=== PATIENT | female | born 1940 | race Caucasian/White ===

== ENCOUNTER → 2017-01-18 | Outpatient (CLI) | payer OTHER | LOC: FIMAGING 07:19 | PROVIDERS: ATTEND Internal Medicine Cardiovascular Disease | DX: I65.23 Occlusion and stenosis of bilateral carotid arteries (principal); I77.9 Disorder of arteries and arterioles, unspecified; R09.89 Other specified symptoms and signs involving the circulatory and respiratory systems; I25.10 Atherosclerotic heart disease of native coronary artery without angina pectoris; E78.5 Hyperlipidemia, unspecified ==

== ENCOUNTER 2017-08-07 05:46 | Inpatient (IN) | payer OTHER ==
[2017-08-07] MEDS ORDERED: ROPIVACAINE 0.2% 80 MG, EPINEPHrine 0.2 MG, KETOROLAC TROMETHAMINE 30 MG in SYRINGE 0 ML IU ONE (06:00)
[2017-08-07] MEDS ORDERED: POVIDONE-IODINE 20 ML in SODIUM CL IRRIG SOLUTION 500 ML IRR ONE (06:00)
[2017-08-07] MEDS ORDERED: ROPIVACAINE 0.2% 80 MG, EPINEPHrine 0.2 MG, KETOROLAC TROMETHAMINE 30 MG in BAG 0 ML IU ONE (06:00)
[2017-08-07] MEDS ORDERED: LIDOCAINE 1% 2 ML INJ ONE (06:06)
[2017-08-07] MEDS ORDERED: DEXAMETHASONE 4 MG/ML VIAL IVP ONE (06:14)
[2017-08-07] MEDS ORDERED: ACETAMINOPHEN 325 MG TAB PO ONE (06:14)
[2017-08-07] MEDS ORDERED: FAMOTIDINE 20 MG TAB PO ONE (06:14)
[2017-08-07] MEDS ORDERED: LIDOCAINE 1% 2 ML INJ ID PRN (06:29)
[2017-08-07] MEDS ORDERED: LR 1,000 ML IV ONE (06:29)
[2017-08-07] MEDS ORDERED: ceFAZolin 1 GM/5 ML SYR ONE (06:36)
--- NOTE | 2017-08-07 06:58 | PDHPUP ---
History & Physical Update H&P update statement: This history and physical update is based on an assessment of the patient which was completed after admission or registration (within 24 hours), but prior to the surgery/procedure. H&P update: H&P reviewed & patient examined, no change in patient's condition since H&P completed
[2017-08-07] MEDS ORDERED: VANCOMYCIN HCL/NORMAL SALINE 250 ML IV ONE (06:59)
[2017-08-07] MEDS ORDERED: MIDAZOLAM 2 MG/2 ML VIAL ONE (07:05)
[2017-08-07] MEDS ORDERED: MIDAZOLAM 2 MG/2 ML VIAL IVP ONE (07:07)
--- NOTE | 2017-08-07 07:08 | PDANEPAE ---
ANE History of Present Illness here for R MARLENE. History of CAD s/p stent cleared by cards with negative stress test. ANE Past Medical History - Cardiovascular History Hx Hypertension: Yes Hx Arrhythmias: No Hx Chest Pain: No Hx Coronary Artery / Peripheral Vascular Disease: Yes Hx CHF / Valvular Disease: No Hx Palpitations: No Cardiovascular History Comment: CARDIAC STENTS X3 - Pulmonary History Hx COPD: No Hx Asthma/Reactive Airway Disease: No Hx Recent Upper Respiratory Infection: No Hx Oxygen in Use at Home: Yes O2 in Use at Home (L/minute): O2 2L NOC Hx Sleep Apnea: Yes Sleep Apnea Screening Result - Last Documented: Positive Pulmonary History Comment: RADHA POS - CPAP - Neurologic History Hx Cerebrovascular Accident: No Hx Seizures: No Hx Dementia: No - Endocrine History Hx Diabetes: Yes Endocrine History Comment: DM - Renal History Hx Renal Disorders: No Renal History Comment: BLADDER LEAKAGE - Liver History Hx Hepatic Disorders: Yes Hepatic History Comment: WIN - Neurological & Psychiatric Hx Hx Neurological and Psychiatric Disorders: No - Cancer History Hx Cancer: No - Congenital Disorder History Hx Congenital Disorders: No - GI History Hx Gastrointestinal Disorders: No Gastrointestinal History Comment: POSS IBS - Other Health History Other Health History: NEG - Chronic Pain History Chronic Pain: No - Surgical History Prior Surgeries: STENTS X3 DR WANG 07/2016. DECOMPRESSION LUMBAR. CEA R. CHOLECYSTECTOMY. APPENDECTOMY. TONSILLECTOMY ANE Review of Systems Review of Systems: - Exercise capacity METS (RN): 3 METS ANE Patient History - Allergies Allergies/Adverse Reactions: bacitracin [From Neosporin] Allergy (Verified 06/10/16 10:44) SWELLING & ITCHING bacitracin zinc [From Neosporin] Allergy (Verified 06/10/16 10:44) SWELLING & ITCHING gramicidin D [From Neosporin] Allergy (Verified 06/10/16 10:44) SWELLING & ITCHING neomycin sulfate [From Neosporin] Allergy (Verified 06/10/16 10:44) SWELLING & ITCHING Penicillins Allergy (Verified 06/10/16 10:44) WATER BLISTERS ON SKIN polymyxin B [From Neosporin] Allergy (Verified 06/10/16 10:44) SWELLING & ITCHING polymyxin B sulfate [From Neosporin] Allergy (Verified 06/10/16 10:44) SWELLING & ITCHING Sulfa (Sulfonamide Antibiotics) Allergy (Verified 07/05/17 10:54) UNKNOWN "GOES ALONG WITH PENICILLIN" - Home Medications Home medications: home medication list seen and reviewed Home Medications: Ascorbic Acid [Vitamin C 500 mg (*)] 500 mg PO DAILY 06/10/16 [Last Taken Unknown] Aspirin [Aspirin 81mg (*)] 81 mg PO DAILY 06/10/16 [Last Taken 08/11/16] Fenofibrate 150 mg PO HS 06/10/16 [Last Taken 08/12/16] Furosemide [Lasix 40 MG (*)] 40 mg PO BID@06/10/16 [Last Taken 08/13/16] Insulin Detemir [Levemir] 77 unit SQ HS 06/10/16 [Last Taken 08/12/16] Lisinopril [Zestril 40 mg (*)] 40 mg PO BID 06/10/16 [Last Taken 08/13/16] Magnesium Oxide [Magnesium Oxide 400 mg (*)] 400 mg PO HS 06/10/16 [Last Taken Unknown] Multivitamins [Multivitamin (*)] 1 each PO DAILY 06/10/16 [Last Taken Unknown] Nebivolol HCl [Bystolic 5 mg (*)] 40 mg PO DAILY 06/10/16 [Last Taken 08/13/16] [place]-3 Fatty Acids [Fish Oil 1000 mg (*)] 2,000 mg PO BID 06/10/16 [Last Taken Unknown] Rosuvastatin Calcium [Crestor 5mg] 5 mg PO DAILY18 06/10/16 [Last Taken 08/12/16 ] Vitamin B Complex [B Complex] 1 each PO DAILY 08/13/16 [Last Taken Unknown] Cyanocobalamin/FA/Pyridoxine [Folbic (RX)] 1 each PO DAILY 07/03/17 [Last Taken Unknown] Herbals/Supplements -Info Only 1 ea PO DAILY 07/03/17 [Last Taken Unknown] Insulin Aspart [novoLOG] 0 unit SC TIDMEAL 07/03/17 [Last Taken Unknown] Potassium Citrate [Urocit-K 10meq (*)] 10 meq PO HS 07/03/17 [Last Taken Unknown ] Spironolactone [Aldactone 25 MG (*)] 25 mg PO DAILY 07/03/17 [Last Taken Unknown ] amLODIPine BESYLATE [Norvasc 5 mg (*)] 5 mg PO DAILY 07/03/17 [Last Taken Unknown] metFORMIN SR [Glucophage XR 500 mg (*)] 1,000 mg PO BIDMEAL 07/03/17 [Last Taken Unknown] - NPO status NPO Status: no food or drink >8 hours NPO Since - Liquids (Date): 08/06/17 NPO Since - Liquids (Time): 21:00 NPO Since - Solids (Date): 08/06/17 NPO Since - Solids (Time): 18:00 - Anes Hx Anes Hx: no prior problems - Smoking Hx Smoking Status: Former smoker ANE Labs/Vital Signs - Vital Signs Blood Pressure: 157/54 Heart Rate: 57 Respiratory Rate: 18 O2 Sat (%): 91 Height: 162.56 cm Weight: 106.141 kg ANE Physical Exam - Airway Neck exam: FROM Mallampati Score: Class 3 Mouth exam: normal dental/mouth exam - Pulmonary Pulmonary: no respiratory distress - Cardiovascular Cardiovascular: regular rate and rhythym - ASA Status ASA Status: III ANE Anesthesia Plan Anesthesia Plan: general endotracheal anesthesia, spinal
[2017-08-07] MEDS ORDERED: PROPOFOL/EMULSION 500 MG/50 ML BOTTLE IV ONE (07:22)
[2017-08-07] MEDS ORDERED: fentaNYL 100 MCG/2 ML INJ ONE ×3 (07:22→09:27)
[2017-08-07] MEDS ORDERED: SUGAMMADEX SODIUM 200 MG/2 ML VIAL IVP ONE (08:29)
--- NOTE | 2017-08-07 08:50 | POSTOPPROG ---
Post Op Note Date of Operation: 08/07/17 Surgeon: Dimitris Christie Database Development Project Manager: Jai Schneider/Darius Plascencia Anesthesia: GET(General Endotracheal) Post-op Diagnosis: Right hip arthritis Procedure: Right total hip arthroplasty Inf/Abcess present in the surg proc area at time of surgery?: No EBL: 100-500
[2017-08-07] MEDS ORDERED: BISACODYL 10 MG SUPP PR PRN (09:02)
[2017-08-07] MEDS ORDERED: MAGNESIUM HYDROXIDE 30 ML UDCUP PO PRN (09:02)
[2017-08-07] MEDS ORDERED: diphenhydrAMINE 25 MG CAP PO PRN (09:02)
[2017-08-07] MEDS ORDERED: TEMAZEPAM 15 MG CAP PO PRN (09:02)
[2017-08-07] MEDS ORDERED: traMADol 50 MG TAB PO PRN (09:02)
[2017-08-07] MEDS ORDERED: ONDANSETRON 4 MG/2 ML VIAL IVP PRN ×2 (09:02→09:24)
[2017-08-07] MEDS ORDERED: PROMETHAZINE HCL 25 MG SUPPR PR PRN (09:02)
[2017-08-07] MEDS ORDERED: LACTULOSE 20 GM/30 ML UDCUP PO PRN (09:02)
[2017-08-07] MEDS ORDERED: NS 500 ML IV PRN (09:02)
[2017-08-07] MEDS ORDERED: DIPHENOXYLATE/ATROPINE LOMOTIL 1 TAB PO PRN (09:02)
[2017-08-07] MEDS ORDERED: METOCLOPRAMIDE 10 MG/2 ML VIAL IVP PRN (09:02)
[2017-08-07] MEDS ORDERED: POLYETHYLENE GLYCOL 3350 17 GM PKT PO PRN (09:02)
[2017-08-07] MEDS ORDERED: ONDANSETRON DISINTEGRATING 4 MG TAB PO PRN (09:02)
[2017-08-07] MEDS ORDERED: PROMETHAZINE HCL 25 MG/ML INJ IVP PRN (09:02)
[2017-08-07] MEDS ORDERED: LR 500 ML IV PRN (09:24)
[2017-08-07] MEDS ORDERED: ALBUTEROL 3 ML DEYVIAL IH PRN (09:24)
[2017-08-07] MEDS ORDERED: LABETALOL HCL 5 MG/ML 20 ML MDV IVP PRN (09:24)
[2017-08-07] MEDS ORDERED: NALOXONE HCL 0.4 MG/ML INJ IVP PRN (09:24)
[2017-08-07] MEDS ORDERED: HYDROmorphONE/DILAUDID 1 MG/ML INJ IVP PRN (09:24)
[2017-08-07] MEDS ORDERED: LR 1,000 ML IV SCH (09:30)
[2017-08-07] MEDS: fentaNYL 100 MCG/2 ML INJ IVP PRN ×2 (09:38→09:40)
[2017-08-07] MEDS ORDERED: LABETALOL HCL 5 MG/ML 20 ML MDV ONE (09:46)
[2017-08-07] MEDS ORDERED: HYDROmorphONE/DILAUDID 1 MG/ML INJ ONE (09:47)
[2017-08-07] MEDS: NEBIVOLOL HCL 5 MG TAB PO SCH (11:31)
[2017-08-07] MEDS ORDERED: NON-FORMULARY NEW DRUG (Insulin Aspart [Novolog] 0 UNIT) SC SCH (12:00)
[2017-08-07] MEDS: amLODIPine BESYLATE 5 MG TAB PO SCH (12:07)
[2017-08-07] MEDS: LISINOPRIL 40 MG TAB PO SCH ×2 (12:08→21:38)
[2017-08-07] MEDS: FUROSEMIDE 40 MG TAB PO SCH ×2 (12:08→12:56)
[2017-08-07] MEDS: SPIRONOLACTONE 25 MG TAB PO SCH (12:08)
[2017-08-07] MEDS: CYANOCOBALAMIN/FA/PYRIDOXINE 1 EACH TAB PO SCH (12:08)
--- NOTE | 2017-08-07 12:55 | GOP ---
[f rep st] OPERATIVE REPORT DATE OF OPERATION: 08/07/2017 SURGEON: Dimitris Christie MD REPAIR ARMATURE WINDER: Thien Schneider, PAC and Darius Plascencia CFA ANESTHESIA: General by Сергей Resendiz MD PREOPERATIVE DIAGNOSIS: Right hip severe degenerative arthritis. POSTOPERATIVE DIAGNOSIS: Right hip severe degenerative arthritis. PROCEDURE PERFORMED: Total hip arthroplasty, ceramic femoral head on highly cross-linked polyethylen e cup liner. FINDINGS: DESCRIPTION OF PROCEDURE: The patient was given 1 g of IV vancomycin preoperatively within 60 minute s of surgery. I did not use tranexamic acid because of her history of a recent stent. She was placed on the operating room table and Dr. Сергей Resendiz attempted a spinal anesthetic. This was unsuccessf ul. She was placed supine and given general anesthesia. A Gary catheter was not used. She wore a JIMY stocking and SCD on the nonoperative leg. She was rolled to the left lateral decubitus position. The position was secured with the pegboard table attachment. An axillary roll was used, and all pr essure points were carefully padded. Her BMI was 40. She was difficult to position because of her s ize. Her perineum was isolated with plastic adhesive drapes. Her right hip and right lower extremit y were prepped with ChloraPrep. They were draped free using sterile sheets, stockinette, and Ioban p lastic drapes. The World [employer] Organization time-out was performed to verify the correct surgical s seble and the correct patient identity. The [place] time-out was also performed. I made a 5-6 inch straight oblique posterolateral hip skin incision. Her subcutaneous tissues were s harply divided, and hemostasis was obtained using electrocautery. She had a. 2-3 inch layer of subcu taneous fat. Her fascia rome was identified and split proximally along the axis of its fibers. I th en curved posteriorly and proximally, and split the fascia of the gluteus hanny and bluntly split t he muscle fibers in line with their orientation. The [place] self-retaining retractor was inserted. Her sciatic nerve was located, partially exposed, and protected throughout the procedure. The exte rnal rotators and the posterior hip capsule were divided as separate layers at the base of the femora l neck, tagged, and reflected posteriorly. A smooth 8-inch Steinmann pin was inserted vertically int o the ilium, superior to the acetabulum. An 8-inch drill bit was inserted vertically into the greate r trochanter and parallel to the first pin. The distance between the 2 was measured for leg length r eference. Her femoral head was dislocated posteriorly. Severe degenerative changes were present on the femoral head. She was eroded down to eburnated subchondral bone. Her femoral neck was osteotomi zed at the appropriate level and inclination. I was careful to preserve all the anterior posterior capsule. The remnant of her badly damaged labru m was excised. I prepared the femur first. This allowed me to transmitter tester the amount of natural femoral neck anteversion. She had approximately 10 degrees of natural femoral neck anteversion. The canal was opened lateral ly with a box chisel. I reamed and hand broached sequentially up to size 6. I used a Ian [place]ola de 2 stem in size 6 with high offset as a trial stem. I was careful to lateralize adequately. Appropriate retractors were inserted to expose the acetabulum. The acetabulum was reamed sequentiall y up to 51 mm. I selected the Ian Tritanium solid-backed hemispherical shell. This was tapped s ecurely into place in the proper degree of inclination and anteversion. I used the transverse acetab ular ligament and other acetabular bony landmarks to help me properly orient the cup. Fixation was s ecure and I did not think supplemental screws were necessary. I inserted a screw-in metal dome hole plug. I performed a series of trial reductions to determine length and stability. I concluded that the siz e 6 stem with high offset with a 0 neck and a 32 mm head with a 10 degree lipped liner gave me the pr oper combination of appropriate length and good anterior and posterior stability. The 10 degree lip Ian X3 highly cross-linked polyethylene liner was inserted and tapped securely into place. I selected the Ian Accolade 2 stem and high offset in size 6. This was inserted pre ss-fit and was very tight. I did 1 final trial reduction and confirmed that the 0 neck length with a 32 mm head was the proper combination. The [place] Biolox Delta ceramic head was tapped securely on to the clean trunnion. The acetabulum was irrigated, cleaned, and the hip was reduced 1 final time. She had excellent anterior and posterior stability and appropriate length. Then, 40 mL of the joint anesthetic cocktail were injected into the capsule, the deep musculature, an d the subcutaneous tissues along the skin edges. The joint was thoroughly irrigated one final time w ith a dilute Betadine solution. Her sciatic nerve was reinspected and looked unharmed. The external rotators and the posterior hip capsule were repaired in separate layers with #2 FiberWir e sutures through drill holes in the greater trochanter. This provided a strong posterior capsular a nd external rotator repair. The fascia rome was closed first with two #2 FiberWire sutures followed by a running #2 barbed Ethicon Stratafix PDO suture. Subcutaneous tissues were closed with a running 0 barbed Ethicon Stratafix Monoderm suture. The skin was closed with a running 3-0 barbed Ethicon S tratafix Monoderm subcuticular suture. The skin edges reapproximated and sealed with Dermabond glue. The wound was covered with a large piece of waterproof Mepilex sterile surgical dressing. A long-leg JIMY stocking and SCD were applied to her right lower extremity. She wore a stocking and S CD on the opposite leg during the procedure. An abduction pillow was placed between her knees. She was awakened from anesthesia and rolled to the supine position on her [facility]. She was taken to PACU in satisfactory condition. There were no recognized intraoperative complications. The estimated blood loss was 300 mL. The sponge and needle count were correct on 2 occasions. I used a [place] Tritanium hemispherical solid-backed acetabular shell with an outside diameter of 52 mm. The liner was a Ian X3,10-degree lipped highly cross liner with an inside diameter of 32 mm. The femoral component was a press-fit Ian high offset Accolate 2 stem in size 6. The femora l head was a Ian Biolox Delta ceramic head with a 0 neck length and a 32 mm outside diameter. Jai Schneider and Darius Plascencia acted as surgical assistants. Their assistance was a medical necess ity for safe completion of the procedure. /[id number]/MODL
[2017-08-07] MEDS: oxyCODONE IR 5 MG TAB PO PRN ×3 (12:56→21:41)
[2017-08-07] MEDS: ACETAMINOPHEN 325 MG TAB PO SCH ×3 (12:56→23:45)
[2017-08-07] MEDS: INSULIN LISPRO 100 UNIT/ML SC SCH ×2 (13:06→18:13)
[2017-08-07] MEDS ORDERED: NON-FORMULARY NEW DRUG (Rosuvastatin Calcium [Crestor 5mg] 5 MG) PO SCH (18:00)
[2017-08-07] MEDS ORDERED: ROSUVASTATIN CALCIUM 10 MG TAB PO SCH (18:00)
[2017-08-07] MEDS: metFORMIN SR 500 MG TAB PO SCH (18:12)
[2017-08-07] MEDS: CYCLOBENZAPRINE 10 MG TAB PO PRN (18:13)
[2017-08-07] MEDS ORDERED: INSULIN DETEMIR SQ SCH (21:00)
[2017-08-07] MEDS ORDERED: FENOFIBRATE 150 MG PO SCH (21:00)
[2017-08-07] MEDS ORDERED: MAGNESIUM OXIDE 400 MG TAB PO SCH (21:00)
[2017-08-07] MEDS ORDERED: POTASSIUM CITRATE 10 MEQ TAB PO SCH (21:00)
[2017-08-07] MEDS: FAMOTIDINE 20 MG TAB PO SCH (21:38)
[2017-08-07] MEDS: SENNOSIDES/DOCUSATE SODIUM TAB PO SCH (21:38)
[2017-08-07] MEDS: ASPIRIN 325 MG TAB PO SCH (21:39)
[2017-08-08] MEDS: ACETAMINOPHEN 325 MG TAB PO SCH ×2 (05:10→12:19)
[2017-08-08 05:35] LABS: HEMATOCRIT 24.6 % (38.0-47.0); HEMOGLOBIN 8.1 g/dL (12.6-16.3)
[2017-08-08] MEDS: INSULIN LISPRO 100 UNIT/ML SC SCH ×2 (08:50→12:21)
[2017-08-08] MEDS ORDERED: FERROUS SULFATE 140 MG TAB.ER PO SCH (09:00)
[2017-08-08] MEDS: oxyCODONE IR 5 MG TAB PO PRN ×2 (09:57→14:22)
[2017-08-08] MEDS: NEBIVOLOL HCL 5 MG TAB PO SCH (10:00)
[2017-08-08] MEDS: CYCLOBENZAPRINE 10 MG TAB PO PRN (10:00)
[2017-08-08] MEDS: SPIRONOLACTONE 25 MG TAB PO SCH (10:01)
[2017-08-08] MEDS: CYANOCOBALAMIN/FA/PYRIDOXINE 1 EACH TAB PO SCH (10:01)
[2017-08-08] MEDS: SENNOSIDES/DOCUSATE SODIUM TAB PO SCH (10:01)
[2017-08-08] MEDS: amLODIPine BESYLATE 5 MG TAB PO SCH (10:02)
[2017-08-08] MEDS: LISINOPRIL 40 MG TAB PO SCH (10:02)
[2017-08-08] MEDS: FUROSEMIDE 40 MG TAB PO SCH ×2 (10:02→12:19)
[2017-08-08] MEDS: metFORMIN SR 500 MG TAB PO SCH (10:02)
[2017-08-08] MEDS: ASPIRIN 325 MG TAB PO SCH (10:02)
[2017-08-08] MEDS: FAMOTIDINE 20 MG TAB PO SCH (10:02)
--- NOTE | 2017-08-08 10:15 | SOAPPROG ---
SOAP Progress Note Assessment/Plan: Assessment: Afebrile. Awake and alert. She has not been up and walking with PT yet. Moderate pain. Sciatic nerve intact. Postop H&H were 8 and 24. Postop films look good. Plan: Up with physical therapy today. Transfer to SNF this afternoon. We will check her H&H at the SNF on Sunday. 08/08/17 10:13 Objective: Vital Signs Temp Pulse Resp BP Pulse Ox 36.6 C 56 L 12 114/40 L 98 08/08/17 07:28 08/08/17 10:00 08/08/17 07:28 08/08/17 10:02 08/08/17 07:28 Laboratory Results 08/08/17 05:00 08/07/17 08/08/17 08/09/17 05:59 05:59 05:59 Intake Total 1050 Output Total 1550 Balance -500 ICD10 Worksheet Patient Problems: Problems Problem Status Onset Osteoarthritis of right hip Acute Elevated d-dimer Acute Elevated troponin Acute Shortness of breath Acute
--- NOTE | 2017-08-08 10:15 | PDIAF ---
- Diagnosis Diagnosis: right hip OA Code Status: Full Code - Medication Management Discharge Medications: Medications to Continue on Transfer Ascorbic Acid [Vitamin C 500 mg (*)] 500 mg PO DAILY 06/10/16 [Last Taken Unknown] Fenofibrate 150 mg PO HS 06/10/16 [Last Taken 08/12/16] Furosemide [Lasix 40 MG (*)] 40 mg PO BID@09,12 06/10/16 [Last Taken 08/13/16] Insulin Detemir [Levemir] 77 unit SQ HS 06/10/16 [Last Taken 08/12/16] Lisinopril [Zestril 40 mg (*)] 40 mg PO BID 06/10/16 [Last Taken 08/13/16] Magnesium Oxide [Magnesium Oxide 400 mg (*)] 400 mg PO HS 06/10/16 [Last Taken Unknown] Multivitamins [Multivitamin (*)] 1 each PO DAILY 06/10/16 [Last Taken Unknown] Nebivolol HCl [Bystolic 5 mg (*)] 40 mg PO DAILY 06/10/16 [Last Taken 08/13/16] [place]-3 Fatty Acids [Fish Oil 1000 mg (*)] 2,000 mg PO BID 06/10/16 [Last Taken Unknown] Rosuvastatin Calcium [Crestor 5mg] 5 mg PO DAILY18 06/10/16 [Last Taken 08/12/16 ] Vitamin B Complex [B Complex] 1 each PO DAILY 08/13/16 [Last Taken Unknown] Clopidogrel Bisulfate [Plavix (*)] 75 mg PO DAILY #60 tab 08/14/16 [Last Taken Unknown] Cyanocobalamin/FA/Pyridoxine [Folbic] 1 each PO DAILY 07/03/17 [Last Taken Unknown] Herbals/Supplements -Info Only 1 ea PO DAILY 07/03/17 [Last Taken Unknown] Insulin Aspart [novoLOG] 0 unit SC TIDMEAL 07/03/17 [Last Taken Unknown] Potassium Citrate [Urocit-K 10meq (*)] 10 meq PO HS 07/03/17 [Last Taken Unknown ] Spironolactone [Aldactone 25 MG (*)] 25 mg PO DAILY 07/03/17 [Last Taken Unknown ] amLODIPine BESYLATE [Norvasc 5 mg (*)] 5 mg PO DAILY 07/03/17 [Last Taken Unknown] metFORMIN SR [Glucophage XR 500 mg (*)] 1,000 mg PO BIDMEAL 07/03/17 [Last Taken Unknown] Acetaminophen [Tylenol 325mg (*)] 650 mg PO Q6HRS tab 08/08/17 [Last Taken Unknown] Aspirin [Aspirin 325 mg (*)] 325 mg PO DAILY tab 08/08/17 [Last Taken Unknown] Ferrous Sulfate [Slow Fe 140 MG (*)] 140 mg PO DAILY tab.er 08/08/17 [Last Taken Unknown] Ondansetron Odt [Zofran Odt 4 mg (*)] 4 mg PO Q4HRS PRN tab 08/08/17 [Last Taken Unknown] Sennosides/Docusate Sodium [Senokot-S] 1 - 2 tab PO BID tab 08/08/17 [Last Taken Unknown] oxyCODONE IR [Oxycodone Ir (*)] 5 - 10 mg PO Q3HRS PRN tab 08/08/17 [Last Taken Unknown] traMADol [Ultram 50 mg (*)] 50 mg PO Q6HRS PRN tab 08/08/17 [Last Taken Unknown ] Discharge Medications: Refer to the Discharge Home Medication list for PRN reason. PICC Care - Routine: N/A - Orders Services needed: Physical Therapy Diet Recommendation: no restrictions on diet Diet Texture: Regular Texture Diet Gary: Not applicable [place] Stockings Discontinue Date: 1 week Wound Care Instructions: keep clean and dry. You may shower. Activity/Weight Bearing Restrictions: 50% wt bearing on the right side x 3 weeks. - Labs/Radiology HCT/HGB Date: 08/10/17 - Follow Up Care Current Providers and Referrals: Aysuh Sandoval MD [Primary Care Provider] - Dimitris Christie MD [Medical Doctor] - 09/06/17
[2017-08-08] MEDS ORDERED: CLOPIDOGREL BISULFATE 75 MG TAB PO SCH (10:30)
[2017-08-08 11:46] VITALS: BP 138/49; PULSE 57; RESP 14; TEMP 97.6; O2SAT 93
--- NOTE | 2017-08-08 13:11 | GDS ---
[f rep st] DISCHARGE SUMMARY ADMISSION DIAGNOSIS: Right hip, severe degenerative arthritis. DISCHARGE DIAGNOSIS: Right hip, severe degenerative arthritis. OPERATION PERFORMED: 08/07/2017, a right total hip arthroplasty. POSTOPERATIVE COMPLICATIONS: None. CONDITION ON DISCHARGE: Improved. DESCRIPTION OF HOSPITAL COURSE: The patient was admitted to the hospital on the morning of surgery. The same day she underwent a right total hip arthroplasty under general anesthesia. Postoperatively , she was treated with multimodal DVT prophylaxis, including aspirin. She was also placed back on r Plavix. On the first postoperative day, her hemoglobin and hematocrit were 8.1 and 24.6. She was seen by Physical Therapy, and made satisfactory progress with ambulation. By the time of discharge, she was afebrile, and was independent walking with a walker. DISPOSITION: The patient is discharged to a skilled rehab facility. She will be 50% weightbearing o n the right for the first 3 weeks due to her obesity. Continue aspirin 325 mg p.o. daily for 21 days . She will resume her normal Plavix dose. Use an abduction pillow in bed for 3 weeks. JIMY stocking s for 1 week. I will see her back in the office on September 06, 2017. We will check her H and H at [facility] in 48 hours. If there any problems, she is to call me at the office. /[id number]/MODL
--- NOTE | 2017-08-08 16:12 | ASDISCHSUM ---
Discharge Information Plan Status:SNF Medically Cleared to Leave: Discharge Date:08/08/2017 04:04 PM D/C Disposition:Jail Facility ADT D/C Disposition:Jail Facility Projected Discharge Date:08/08/2017 11:00 AM Transportation at D/C:Wheelchair Van Discharge Delay Reason: Follow-Up Date:08/08/2017 11:00 AM Discharge Slot: Final Diagnosis: Placement Information Referral Type:*Senior Care/SNF Referral ID:[id number] Provider Name:[facility] Address 1:[address] Address 2: City:[place] Selection Factors: State:[place] Patient Contact Information Contact Name:DALIACATHERINELEFTY Relationship: Address:[address] Work Phone: [facility]:[place] Alternate Phone: [facility]/Zip Code:[place] [address] Email: Financial Information Financial Class: Primary Plan Desc:MEDICARE INPATIENT Primary Plan Number:[id number] Secondary Plan Desc:[facility] Secondary Plan Number:[id number] Assessment Information Case Management Discharge Plan Note Case Management Discharge Discharge Order Complete? Answers: Yes Patient to Obtain Answers: Independently Medications Transportation Arranged Answers: Other Notes: by [facility] Transport will Pick (Date 08/08/2017 04:00 PM & Time) Faxed Final Orders Answers: Yes Family Notified Answers: Yes Discharge Comments Notes: Patient will discharge to [facility]. Orders sent to and received by facility. Transport set up by Neva at [facility]. GRIFFIN Denny to call report. Date Signed: 08/08/2017 12:45 PM Electronically Signed By:Spring Link RN Intervention Information
== END 2017-08-08 16:04 | DRG 470 ==
LOC: F3N 05:46
PROVIDERS: ADMIT Orthopaedic Surgery; ATTEND Orthopaedic Surgery
PROC: 0SR904Z Replacement of Right Hip Joint with Ceramic on Polyethylene Synthetic Substitute, Open Approach (ICD-10-PCS; principal; 2017-08-07 07:15)
DX: M16.11 Unilateral primary osteoarthritis, right hip (principal); I25.10 Atherosclerotic heart disease of native coronary artery without angina pectoris; I27.20 Pulmonary hypertension, unspecified; I50.32 Chronic diastolic (congestive) heart failure; I65.22 Occlusion and stenosis of left carotid artery; G47.33 Obstructive sleep apnea (adult) (pediatric); E78.5 Hyperlipidemia, unspecified; I10 Essential (primary) hypertension; Z95.5 Presence of coronary angioplasty implant and graft; Z79.01 Long term (current) use of anticoagulants; Z99.89 Dependence on other enabling machines and devices
CPT/HCPCS: 97116-GP; 97161-GP; 97165-GO; 97530-GP; G8978-GP-CJ; G8979-GP-CI; G8987-GO-CK; G8988-GO-CI; J0171; J1100; J1170; J1815; J1885; J2250; J2704; J2795; J3010; J3370; J3490